=== PATIENT | female | born 1990 | race Hispanic/Latino ===

== ENCOUNTER 2017-06-05 20:13 | Emergency (ER) | payer OTHER ==
[2017-06-05 21:33] VITALS: TEMP 99.2
[2017-06-05] MEDS ORDERED: SULFA/TRIMETH 800/160 (DS) TAB 1 EA TAB PO ONE (22:29)
--- NOTE | 2017-06-05 22:48 | ED.PDOC ---
History of Present Illness - General Chief Complaint: Problem Stated Complaint: urinary hesitancy, pelvic pain Time Seen by Provider: 06/05/17 22:25 Source: patient Exam Limitations: no limitations - History of Present Illness Quality: moderate Onset Location: groin Radiation: generalized flank Activites at Onset: none Prior abdominal problems: none Improving Factors: nothing Worsening Factors: nothing Associated Symptoms: dysuria Allergies/Adverse Reactions: Allergies Penicillins Allergy (Verified 06/05/17 20:28) Home Medications: Ambulatory Orders Sulfa/Trimeth 800/160 (Ds) Tab [Bactrim DS Tab] 1 unit PO BID #6 tab 06/05/17 Review of Systems - Review of Systems Constitutional: States: no symptoms reported EENTM: States: no symptoms reported Respiratory: States: no symptoms reported Cardiology: States: no symptoms reported Gastrointestinal/Abdominal: States: see HPI. Denies: diarrhea, nausea Genitourinary: States: see HPI, dysuria. Denies: hematuria Musculoskeletal: States: no symptoms reported Skin: States: no symptoms reported Neurological: States: no symptoms reported Endocrine: States: no symptoms reported Hematologic/Lymphatic: States: no symptoms reported All other Systems: Reviewed and Negative Past Medical History (General) - Vaccination History Hx Influenza Vaccination: No - Female History Patient is a Female of Child Bearing Age (10 -59 yrs old): Yes Hx Last Menstrual Period: 05/17/17 Patient : No Family Medical History - Family History Father Family History: Unknown Physical Exam - Physical Exam General Appearance: Alert, Obese Eyes, Ears, Nose, Throat Exam: PERRL/EOMI, normal ENT inspection Neck: non-tender, full range of motion Cardiovascular/Respiratory: regular rate, rhythm, no M/R/G Gastrointestinal/Abdominal: soft, no organomegaly, no pulsatile mass, other - SUPRAPUBIC TENDERNESS Back Exam: normal inspection, no CVA tenderness Extremity: normal range of motion, non-tender Neurologic: alert, normal mood/affect Skin Exam: normal color, warm/dry Lymphatic: no adenopathy Progress - Results/Orders Results/Orders: HCG NEG. UA = POS BLOOD, LEUK EST, WBC, BACTERIA. Departure - Departure Clinical Impression: Urinary tract infection, Dysuria, Microscopic hematuria Disposition: Discharge to Home or Self Care Condition: Good Departure Forms: ED Discharge - Pt. Copy, Patient Portal Self Enrollment Instructions: DI for Urinary Tract Infection (UTI) Diet: resume usual diet Referrals: Nik Brown III, MD [Primary Care Provider] - 1-2 Weeks Prescriptions: Sulfa/Trimeth 800/160 (Ds) Tab [Bactrim DS Tab] 1 unit PO BID #6 tab Home Medications: Ambulatory Orders Sulfa/Trimeth 800/160 (Ds) Tab [Bactrim DS Tab] 1 unit PO BID #6 tab 06/05/17
[2017-06-05 22:54] VITALS: BP 142/88; O2SAT 99
== END 2017-06-05 22:55 | disposition home or self-care (01) ==
LOC: ER 20:13
DX: N39.0 Urinary tract infection, site not specified (principal); Z88.0 Allergy status to penicillin